=== PATIENT | male | born 1975 | race Caucasian/White ===

== ENCOUNTER 2019-07-17 09:03 | Emergency (ER) | payer SELFPAY ==
[~2019-07-17] VITALS: Ht 162.6 cm; Wt 59.9 kg
[2019-07-17 09:05] VITALS: BP 134/91
--- NOTE | 2019-07-17 09:10 | NUR ---
C/O BACK PAIN, HEADACHE , LEFT CHEST PAIN & BODY ACHE X TODAY. DENIES TRAUMA.PT AWAKE ALERT , AFIBRILE , AMBULATORY WITH STEADY GAIT. SCE, CBS, FLAT SOFT NABS ABDOMEN.DENIES PMHS.
--- NOTE | 2019-07-17 09:23 | NUR ---
DR CASIANO AT BEDSIDE ENALUATING PT.
[2019-07-17] MEDS ORDERED: KETOROLAC 60 MG/2 ML VIAL IM ONE (09:25)
[2019-07-17 09:37] VITALS: BP 134/89
--- NOTE | 2019-07-17 09:39 | NUR ---
Patient discharged with v/s stable. Written and verbal after care instructions given and explained regarding GERD. Patient alert, oriented and verbalized understanding of instructions. Ambulatory with steady gait. All questions addressed prior to discharge. ID band removed. Patient advised to follow up with PMD. Rx of prilosec, motrim, and atarax given. Patient educated on indication of medication including possible reaction and side effects. Opportunity to ask questions provided and answered.
== END 2019-07-17 09:39 | disposition home or self-care (01) ==
LOC: MED 09:03
DX: K21.9 Gastro-esophageal reflux disease without esophagitis (principal); F41.9 Anxiety disorder, unspecified
CPT/HCPCS: 81002; 96372; 99283; J1885